=== PATIENT | female | born 1980 ===

== ENCOUNTER 2017-12-24 11:58 | Emergency (ER) | payer MEDICAID ==
[2017-12-24 12:02] VITALS: BMI 38.4
[2017-12-24] MEDS ORDERED: Amoxicillin-Clav 875-125 mg Tab PO STA (12:09)
[2017-12-24 12:11] VITALS: BP 138/67; PULSE 89; RESP 18; TEMP 98.4; O2SAT 99
--- NOTE | 2017-12-24 12:12 | ED PDOC ---
Arrival/HPI - General Chief Complaint: ENT Problem Time Seen by Provider: 12/24/17 12:09 Historian: Patient - Critical Care Narrative Critical Care (Text): 12/24/17 12:02 37 yo female 29 wks come in for evaluation of Left ear discomfort gradually developed for past month. Pt reports, "pain intermittent with itchiness, was cleaning and now noted some bloody oozing from left ear". Otherwise, pt denies fever, chills, headache, dizziness, vertigo, ear discharges , sore throat, cough, abd. pain, N/V, vaginal bleeding/discharges. Ambulate to Ed for evaluation, not in any apparent distress. Past Medical History - Provider Review Nursing Documentation Reviewed: Yes - Travel History Have you recently traveled outside [place] w/in the past 3 mons?: No - Past History Past History: No Previous - Infectious Disease Hx of Infectious Diseases: None - Psychiatric Hx Substance Use: No Family/Social History - Physician Review Nursing Documentation Reviewed: Yes Family/Social History: No Known Family HX Smoking Status: Never Smoked Hx Alcohol Use: No Hx Substance Use: No Allergies/Home Meds Allergies/Adverse Reactions: Allergies No Known Allergies Allergy (Verified 12/24/17 12:02) Home Medications: Home Meds Medication Instructions Recorded Confirmed Multivit/Folic Acid/I 1 tab PO DAILY 12/24/17 12/24/17 [] Review of Systems - Review of Systems Constitutional: Normal Eyes: Normal ENT: Other (Left eaeache). absent: Hearing Changes, Tinnitus, Sore Throat, Rhinorrhea Respiratory: Normal. absent: Cough, Sputum Cardiovascular: Normal Gastrointestinal: Normal Genitourinary Female: Normal Musculoskeletal: Normal Skin: Normal Neurological: Normal Endocrine: Normal Hemo/Lymphatic: Normal Psychiatric: Normal Physical Exam Vital Signs Reviewed: Yes Vital Signs Temp Pulse Resp BP Pulse Ox 12/24/17 12:02 98.4 F 89 18 138/67 99 Temperature: Afebrile Blood Pressure: Normal Pulse: Regular Respiratory Rate: Normal Appearance: Positive for: Well-Appearing, Non-Toxic, Comfortable Pain Distress: None Mental Status: Positive for: Alert and Oriented X 3 - Systems Exam Head: Present: Normocephalic Conjunctiva: Present: Normal Ears: Present: Normal (exam Right ear), Erythema (Left TM), Other (mild left ear canal edema and eyrthema. No discharges. No mastoid tenderness.). No: TM Perf Mouth: Present: Moist Mucous Membranes Pharnyx: No: ERYTHEMA, EXUDATE, TONSILS ENLARGED Nose (Internal): Present: Moist Neck: Present: Trachea Midline. No: JVD, Bruit Respiratory/Chest: Present: Clear to Auscultation, Good Air Exchange. No: Respiratory Distress, Accessory Muscle Use Cardiovascular: Present: Regular Rate and Rhythm, Normal S1, S2. No: Murmurs Abdomen: Present: Other (Gravid) Back: No: CVA Tenderness Upper Extremity: Present: Normal ROM Lower Extremity: Present: Normal ROM. No: Edema Neurological: Present: GCS=15, Speech Normal Skin: Present: Warm, Dry, Normal Color. No: Rashes Psychiatric: Present: Alert, Oriented x 3, Normal Insight, Normal Concentration Medical Decision Making ED Course and Treatment: 12/24/17 On re-eval, pt is afebrile, hemodynamicaly stable. Non-toxic. Pulseox 99% RA ENT: exam c/w left otitis externa/media Neck: Supple, (-) JVD Lumgs: CTA B/L,BS equal B/L. Abd: gravid. Neuorlogicaly intact. Pt advised on course of ds. ref. to f/u with PMD, ENT in 2-3 days for re-eavl. return to Ed if any worsening or new changes. Disposition/Present on Arrival - Present on Arrival Any Indicators Present on Arrival: No History of DVT/PE: No History of Uncontrolled Diabetes: No Urinary Catheter: No History of Decub. Ulcer: No History Surgical Site Infection Following: None - Disposition Have Diagnosis and Disposition been Completed?: Yes Diagnosis: Otitis media Disposition: HOME/ ROUTINE Disposition Time: 12:10 Patient Plan: Discharge Patient Problems: Current Active Problems Problem Status Onset Otitis media Acute Condition: STABLE Discharge Instructions (ExitCare): Ear Infections (Otitis Media) (DC) Additional Instructions: Keep ear dry, avoid water exposure Do not clean ear with dry Q tip Take medication as prescribed Follow up with ENT in 2-3 days if no improvement. return to Ed if any worsening or new changes. Mantenga seco el odo, evite la exposicin al agua No limpie la oreja con la punta Q seca Blades la medicacin segn lo prescrito Jeanine un seguimiento con ENT en 2-3 hutton si no mejora. regresar a Ed si hay un empeoramiento o nuevos cambios. Prescriptions: Amoxicillin/Clavulanate [Augmentin 875 MG-125 MG] 1 tab PO BID #14 tab Neomycin/Polymyxin/Hydrocortis [Cortisporin Otic Susp] 2 drop TOP BID #1 bottle Referrals: Remberto Haas DO [Staff Provider] - Follow up with primary
== END 2017-12-24 12:47 | disposition home or self-care (01) ==
LOC: ED 11:58
DX: O99.89 Other specified diseases and conditions complicating pregnancy, childbirth and the puerperium (principal); H66.90 Otitis media, unspecified, unspecified ear; Z3A.29 29 weeks gestation of pregnancy